=== PATIENT | female | born 1975 | race Caucasian/White ===

== ENCOUNTER 2020-06-03 11:45 | Emergency (ER) | payer OTHER ==
[2020-06-03] MEDS ORDERED: CYCLOBENZAPRINE10 MG PO (13:55)
[2020-06-03] MEDS ORDERED: PREDNISONE 20MG20 MG PO (13:55)
== END 2020-06-03 14:26 | disposition home or self-care (01) ==
LOC: FER 11:45
DX: G56.01 Carpal tunnel syndrome, right upper limb (principal); J44.9 Chronic obstructive pulmonary disease, unspecified
CPT/HCPCS: 99283